=== PATIENT | male | born 1985 | race Caucasian/White ===

== ENCOUNTER 2018-05-09 17:30 | Inpatient (IN) ==
[2018-05-09] MEDS ORDERED: Acetaminophen 325 MG Tablet PO ONE (18:23)
[2018-05-09] MEDS ORDERED: HYDROmorphone PF Inj 2 MG/ML Vial IV.PUSH ONE (18:23)
[2018-05-09] MEDS ORDERED: Clindamycin 600 mg/NS Premix 600 MG/50 ML PIGGYBACK IV.SIG STA (18:23)
[2018-05-09] MEDS ORDERED: Sod Chloride 0.9% Inj 1,000 ML IV.SIG SCH (18:30)
--- NOTE | 2018-05-09 18:30 | ED ---
HPI General Chief complaint: Skin/Abscess/Foreign Body Stated complaint: Neck complaint Time Seen by Provider: 05/09/18 18:16 Source: patient Mode of arrival: ambulatory Limitations: no limitations History of Present Illness HPI narrative: Is a 32-year-old man, presents to the emergency department quitting of severe pain redness swelling on the right side of his neck. Started about 5 or 6 days ago. Progressively worse. Exquisitely tender now. Warm and hot to the touch. Endorses fevers chills and sweats also over the past several days. Denies injection drug use at all. Does endorse some recent work on his neck tattoo. No history of soft tissue infection. States he otherwise has been feeling generally well and healthy. Related Data Home Medications Medication Instructions Recorded Confirmed No Known Home Medications 04/25/18 05/09/18 Allergies Allergy/AdvReac Type Severity Reaction Status Date / Time No Known Allergies Allergy Verified 04/25/18 23:16 Review of Systems ROS: all other systems reviewed are negative [facility] Medical History Medical History PTSD (post-traumatic stress disorder) (Acute) Social History Social History Second Hand Smoke Exposure: Yes Smoking Status: Former smoker Tobacco Type: Cigarettes How Often Do You Have a Drink Containing Alcohol: Never Immunization History Tetanus Immunization: Unsure Tetanus Immunization Year if Known: 2013 Exam Narrative Exam Narrative: GENERAL: Well-appearing 32-year-old man, nontoxic, appears uncomfortable. SKIN: Focused skin assessment warm/dry. HEAD: Atraumatic. Normocephalic. EYES: Pupils equal and round. No scleral icterus. No injection or drainage. ENT: No nasal bleeding or discharge. Mucous membranes pink and moist. NECK: Trachea midline. Large tender bulge to the right side of the neck, right along the anterior cervical space, with some fluctuance, and marked erythema and warmth. Exquisite tenderness. CARDIOVASCULAR: Regular rate and rhythm. No murmur appreciated. RESPIRATORY: No accessory muscle use. Clear to auscultation. Breath sounds equal bilaterally. GASTROINTESTINAL: Abdomen soft, non-tender, nondistended. Hepatic and splenic margins not palpable. MUSCULOSKELETAL: No obvious deformities. No clubbing. No cyanosis. No edema. Course Initial Documented Vital Signs Temperature 98.4 F 05/09/18 17:38 Pulse Rate 85 05/09/18 17:38 Respiratory Rate 18 05/09/18 17:38 Blood Pressure 136/75 05/09/18 17:38 Pulse Oximetry 100 05/09/18 17:38 Last Documented Vital Signs Temperature 98.4 F 05/09/18 17:38 Pulse Rate 66 05/09/18 20:30 Respiratory Rate 15 05/09/18 20:30 Blood Pressure 104/56 L 05/09/18 20:30 Pulse Oximetry 100 05/09/18 20:30 Medical Decision Making MDM Narrative Medical decision making narrative: Is a 32-year-old man, appears to have a large abscess on his anterior right delicate area for drainage. Appears very close to the carotid and the jugular. Will check CT imaging. I suspect this is a primary soft tissue infection. I do not think this is odontogenic. Suspect injection drug use although patient denies. Will check CT, labs, lactate and cultures given his complaint of fevers and sweats. Needs drainage, probably in the OR, will follow up on CT, reassess. Medical Screen Exam Complete: Yes Emergency Medical Condition: Yes Lab Data Result diagrams: 05/09/18 18:36 05/09/18 18:36 Lab Results 05/09/18 05/09/18 Range/Units 18:36 18:36 WBC 11.5 H (4.0-11.0) th/mm3 RBC 4.27 L (4.50-5.90) mil/mm3 Hgb 12.5 L (13.0-17.0) gm/dL Hct 37.3 L (39.0-51.0) % MCV 87.3 (80.0-100.0) fL MCH 29.3 (27.0-34.0) pg MCHC 33.6 (32.0-36.0) % RDW 12.6 (11.6-17.2) % Plt Count 262 (150-450) th/mm3 MPV 7.8 (7.0-11.0) fL Neut % (Auto) 80.2 H (16.0-70.0) % Lymph % (Auto) 13.2 (9.0-44.0) % [place] % (Auto) 5.4 (0.0-8.0) % Eos % (Auto) 0.7 (0.0-4.0) % Baso % (Auto) 0.5 (0.0-2.0) % Neut # (Auto) 9.2 H (1.8-7.7) th/mm3 Lymph # (Auto) 1.5 (1.0-4.8) th/mm3 [place] # (Auto) 0.6 (0.0-0.9) th/mm3 Eos # (Auto) 0.1 (0.0-0.4) th/mm3 Baso # (Auto) 0.1 (0.0-0.2) th/mm3 WBC Differential . Differential Comment Auto diff final Sodium 139 (136-145) meq/L Potassium 3.9 (3.5-5.1) meq/L Chloride 104 (98-107) meq/L Carbon Dioxide 29.0 (21.0-32.0) meq/L Anion Gap 6 (5-15) meq/L BUN 10 (7-18) mg/dL Creatinine 1.20 (0.60-1.30) mg/dL Estimated GFR 71 L (>89) mL/min Random Glucose 83 (74-106) mg/dL Calcium 9.4 (8.5-10.1) mg/dL Imaging Data Radiologist's impression: Soft Tissue Neck CT 05/09/18 18:23 CONCLUSION: 1. Large ill-defined low-attenuation mass extending along the right side of the neck. The differential diagnosis includes abscess and necrotic masses. 2. Several borderline prominent right cervical chain lymph nodes which likely are reactive. Discharge Plan Discharge Disposition Patient Disposition: ED Admit(ED Internal Use Only) Discharge Order Discharge Orders: ED Use Only Admit Order (Routine); Ordered 05/09/18 Ordered By: Caio Velasquez Physicians Team ED Provider: Caio Velasquez Primary Care Provider: UNKNOWN, Rxs /Orders / Referrals /Forms Prescriptions: No Action No Known Home Medications RF: 0 Discharge Instructions Patient Printed Instructions: Incision and Drainage (DC) Discharge Interventions Interventions: Vital Signs Last Done: 05/09/18 20:30 Status ED Status: With Doctor
[2018-05-09 19:24] LABS: Baso # (Auto) 0.1 th/mm3 (0.0-0.2); Baso % (Auto) 0.5 % (0.0-2.0); Eos # (Auto) 0.1 th/mm3 (0.0-0.4); Eos % (Auto) 0.7 % (0.0-4.0); Hematocrit 37.3 % (39.0-51.0); Hemoglobin 12.5 gm/dL (13.0-17.0); Lymph # (Auto) 1.5 th/mm3 (1.0-4.8); Lymph % (Auto) 13.2 % (9.0-44.0); Mean Corpuscular HGB Conc 33.6 % (32.0-36.0); Mean Corpuscular Hemoglobin 29.3 pg (27.0-34.0); Mean Corpuscular Volume 87.3 fL (80.0-100.0); Mean Platelet Volume 7.8 fL (7.0-11.0); Mono # (Auto) 0.6 th/mm3 (0.0-0.9); Mono % (Auto) 5.4 % (0.0-8.0); Neut # (Auto) 9.2 th/mm3 (1.8-7.7); Neut % (Auto) 80.2 % (16.0-70.0); Platelet Count 262 th/mm3 (150-450); Red Blood Count 4.27 mil/mm3 (4.50-5.90); Red Cell Distribution Width 12.6 % (11.6-17.2); White Blood Count 11.5 th/mm3 (4.0-11.0)
[2018-05-09 19:29] LABS: Calcium 9.4 mg/dL (8.5-10.1); Potassium 3.9 meq/L (3.5-5.1)
--- NOTE | 2018-05-09 20:13 | CT ---
EXAM DATE: 05/09/2018 8:06 PM EST AGE/SEX: 32 years / Male INDICATIONS: Right side neck swelling, evaluate for abscess. CLINICAL DATA: This is the patient's initial encounter. Patient reports that signs and symptoms have been present for 1 week and indicates a pain score of 7/10. MEDICAL/SURGICAL HISTORY: None. None. RADIATION DOSE: 15.24 CTDI (mGy) COMPARISON: No prior exams available for comparison. TECHNIQUE: Helical acquisition was performed using a multirow detector CT scanner during the adminis tration of 69 ml Omnipaque 350 (iohexol) nonionic water-soluble contrast as a single exam dose. Usi ng automated exposure control and adjustment of the mA and/or kV according to patient size, radiation dose was kept as low as reasonably achievable to obtain optimal diagnostic quality images. DICOM fo rmat image data is available electronically for review and comparison. FINDINGS: Nasopharynx: The nasopharyngeal airway has a normal configuration. No mucosal thickening or mass is seen. Oropharynx: The intrinsic muscles of the tongue are symmetric. The tonsillar pillars are intact. T he prevertebral soft tissues are not thickened. Larynx: The supraglottic, glottic, and infraglottic structures are intact. Parapharyngeal: The parapharyngeal space is intact. Salivary Glands: The parotid and submandibular glands are intact. Lymph Nodes: There are several borderline prominent right cervical chain lymph nodes adjacent to the mass in the the largest measures up to 11 mm. Thyroid: Homogeneous enhancement without evidence of nodule. Bones: Unremarkable. There is a large ill-defined low density mass along the right side of the neck with peripheral and in ternal areas of enhancement. The mass measures up to at least 3.5 x 3.5 x 7.5 cm in greatest anterior -posterior by transverse by caudocranial dimension. There is mass effect on the right vascular struct ures. The mass extends from the level of the angle of the mandible down to the base of the neck. Ther e are no gas bubbles in the mass. CONCLUSION: 1. Large ill-defined low-attenuation mass extending along the right side of the neck. The differenti al diagnosis includes abscess and necrotic masses. 2. Several borderline prominent right cervical chain lymph nodes which likely are reactive. Electronically signed by: Jone Amanda MD Board Certified Radiologist 05/09/2018 8:12 PM EST
[2018-05-09] MEDS ORDERED: Acetaminophen 325 MG Tablet PO PRN (21:31)
[2018-05-09] MEDS ORDERED: Bisacodyl 10 MG Supp RECTAL PRN (21:31)
[2018-05-09] MEDS: Sod Chloride 0.9% Inj 1,000 ML IV.CONT SCH (21:39)
--- NOTE | 2018-05-09 22:29 | P.HP ---
History of Present Illness Service: [facility] Primary Care Physician: UNKNOWN History of Present Illness: 32-year-old male with no significant past medical history presents emergency department for evaluation of right sided neck swelling and erythema. The patient reports that a few weeks ago he noticed a "knot" on the right side of his neck. He reports that it remained stable until Wednesday morning when he awoke from sleep with significant swelling, surrounding erythema and pain. He states the mass has continued to enlarge. He reports multiple subjective fever/ chills that began on Wednesday. He denies any chest pain or shortness of breath. No abdominal pain. No nausea/vomiting/diarrhea. No focal neurologic deficits. The patient denies any illicit substance abuse. Denies any previous IV drug abuse. Inpatient Certification: I certify that the inpatient services were ordered in accordance with Medicare regulations governing the order. This includes certification that hospital inpatient services are reasonable and necessary and in the case of services not specified as inpatient-only under 42 CFR 419.22(n), that they are appropriately provided as inpatient services in accordance to with the 2-midnight benchmark under 43 CFR 412.3(e) Estimated Total Length of Stay (Days): 2 Plans for Post Hospital Care: Home Review of Systems All other systems reviewed negative except as stated [facility] - History History Provided By: Patient - Medical History Medical History: Medical History (Last Reviewed 05/09/18 @ 22:24 by Daphnie Coello MD) PTSD (post-traumatic stress disorder) - Surgical History Surgical History: Surgical History (Last Updated 05/09/18 @ 22:25 by Daphnie Coello MD) No history of previous surgery - Family History Family History: Family History (Last Updated 05/09/18 @ 22:25 by Daphnie Coello MD) Other Family history normal - Social History I have reviewed the patient's Social History: Yes - Tobacco History Second Hand Smoke Exposure: Yes Smoking Status: Former smoker Tobacco Type: Cigarettes - Alcohol History How Often Do You Have a Drink Containing Alcohol: Never - Immunization History Tetanus Immunization: Unsure Tetanus Immunization Year if Known: 2013 Medications and Allergies Active Medications: Active Medications Acetaminophen (Tylenol) 650 mg PO Q4H PRN PRN Reason: Temp > 100.4 Al Hydroxide/Mg Hydroxide (Milk Of Magnesia Liq) 30 ml PO Q12H PRN PRN Reason: Mild Constipation Bisacodyl (Dulcolax Supp) 10 mg RECTAL DAILY PRN PRN Reason: SEVERE CONSITIPATION Hydromorphone HCl (Dilaudid Pf Inj) 1 mg IV.PUSH Q4H PRN PRN Reason: PAIN SCALE 1 TO 10 Clindamycin Phosphate 600 mg/ (Sodium Chloride) 104 mls @ 200 mls/hr IV.SIG Q8H DENIS Sodium Chloride (Ns Inj) 1,000 mls @ 100 mls/hr IV.CONT .Q10H DENIS Last Admin: 05/09/18 21:39 Dose: 100 mls/hr Lactulose (Lactulose Liq) 30 ml PO DAILY PRN PRN Reason: SEVERE CONSITIPATION Ondansetron HCl (Zofran Inj) 4 mg IV.PUSH Q6H PRN PRN Reason: NAUSEA OR VOMITING Sennosides (Senokot) 17.2 mg PO Q12H PRN PRN Reason: Moderate Constipation Sodium Chloride (Ns Flush) 2 ml IV.FLUSH BID DENIS Sodium Chloride (Ns Flush) 2 ml IV.FLUSH PRN PRN PRN Reason: FLUSH AFTER USING IV ACCESS Allergies Allergy/AdvReac Type Severity Reaction Status Date / Time No Known Allergies Allergy Verified 04/25/18 23:16 Home Medications Medication Instructions Recorded Confirmed Type No Known Home Medications 04/25/18 05/09/18 History Exam Vital signs: Vital Signs 05/09/18 17:38 05/09/18 17:40 05/09/18 20:30 Temperature 98.4 F Pulse Rate 85 72 66 Respiratory Rate 18 16 15 Blood Pressure 136/75 134/78 104/56 L Pulse Oximetry 100 98 100 05/09/18 21:00 Temperature Pulse Rate 68 Respiratory Rate 16 Blood Pressure 113/66 Pulse Oximetry 100 Intake & Output 05/09/18 05/09/18 05/10/18 06:59 18:59 06:59 Intake Total 1104 / 1104 Balance 1104 / 1104 Weight 58.967 kg Intake: IV 1104 / 1104 Cleocin Inj 600 MG In NS Inj 104 / 104 100 ML @ 200 mls/hr IV.SIG ONCE ONE Rx#:[id number] NS Inj 1,000 ML @ 1000 mls/hr 1000 / 1000 IV.SIG BOLUS DENIS Rx#:[id number] Narrative: Gen.: No acute distress Head: Normocephalic. Atraumatic. EENT: Pupils equal round and reactive to light. Nose without drainage. Airway intact. Throat without injection. Cardiovascular: Regular rate and rhythm. No murmurs, rubs or gallops. Respiratory: Lungs clear to auscultation bilaterally. No wheezes or rhonchi. Abdomen: Soft, nontender, nondistended. No peritoneal signs. Musculoskeletal: No gross deformities. No edema. Skin: Significant swelling, induration and erythema on the right neck extending from the ear to the clavicle. Warm to the touch. Nondraining. Neuro: Sensory and motor grossly intact. Cranial nerves II through XII grossly intact. Results - Labs CBC & Chem 7: 05/09/18 18:36 05/09/18 18:36 Labs: Laboratory Results - last 24 hr 05/09/18 05/09/18 18:36 18:36 WBC 11.5 H RBC 4.27 L Hgb 12.5 L Hct 37.3 L MCV 87.3 MCH 29.3 MCHC 33.6 RDW 12.6 Plt Count 262 MPV 7.8 Neut % (Auto) 80.2 H Lymph % (Auto) 13.2 [place] % (Auto) 5.4 Eos % (Auto) 0.7 Baso % (Auto) 0.5 Neut # (Auto) 9.2 H Lymph # (Auto) 1.5 [place] # (Auto) 0.6 Eos # (Auto) 0.1 Baso # (Auto) 0.1 WBC Differential . Differential Comment Auto diff final Sodium 139 Potassium 3.9 Chloride 104 Carbon Dioxide 29.0 Anion Gap 6 BUN 10 Creatinine 1.20 Estimated GFR 71 L Random Glucose 83 Calcium 9.4 - Imaging Impressions Soft Tissue Neck CT 05/09/18 18:23 CONCLUSION: 1. Large ill-defined low-attenuation mass extending along the right side of the neck. The differential diagnosis includes abscess and necrotic masses. 2. Several borderline prominent right cervical chain lymph nodes which likely are reactive. Caprini VTE Risk Assessment Caprini VTE Risk Assessment: No/Low Risk (score <= 1) Caprini Risk Assessment Model: Point Value = 1 Point Value = 2 Point Value = 3 Point Value = 5 Age 41-60 Minor surgery BMI > 25 kg/m2 Swollen legs Varicose veins or History of unexplained or recurrent spontaneous Oral contraceptives or hormone replacement Sepsis (< 1 month) Serious lung disease, including pneumonia (< 1 month) Abnormal pulmonary function Acute myocardial infarction Congestive heart failure (< 1 month) History of inflammatory bowel disease Medical patient at bed rest Age 61-74 Arthroscopic surgery Major open surgery (> 45 min) Laparoscopic surgery (> 45 min) Malignancy Confined to bed (> 72 hours) Immobilizing plaster cast Central venous access Age >= 75 History of VTE Family history of VTE Factor V Leiden Prothrombin [id number] Lupus anticoagulant Anticardiolipin antibodies Elevated serum homocysteine Heparin-induced thrombocytopenia Other congenital or acquired thrombophilia Stroke (< 1 month) Elective arthroplasty Hip, pelvis, or leg fracture Acute spinal cord injury (< 1 month) Prophylaxis Regimen: Total Risk Factor Score Risk Level Prophylaxis Regimen 0-1 Low Early ambulation 2 Moderate Order ONE of the following: *Sequential Compression Device (SCD) *Heparin 5000 units SQ BID 3-4 Higher Order ONE of the following medications: *Heparin 5000 units SQ TID *Enoxaparin/Lovenox 40 mg SQ daily (WT < 150 kg, CrCl > 30 mL/min) *Enoxaparin/Lovenox 30 mg SQ daily (WT < 150 kg, CrCl > 10-29 mL/min) *Enoxaparin/Lovenox 30 mg SQ BID (WT < 150 kg, CrCl > 30 mL/min) AND/OR *Sequential Compression Device (SCD) 5 or more Highest Order ONE of the following medications: *Heparin 5000 units SQ TID (Preferred with Epidurals) *Enoxaparin/Lovenox 40 mg SQ daily (WT < 150 kg, CrCl > 30 mL/min) *Enoxaparin/Lovenox 30 mg SQ daily (WT < 150 kg, CrCl > 10-29 mL/min) *Enoxaparin/Lovenox 30 mg SQ BID (WT < 150 kg, CrCl > 30 mL/min) AND *Sequential Compression Device (SCD) Assessment and Plan - Plan Assessment/plan: 1. Neck cellulitis/abscess Neck CT shows large ill-defined mass extending along the right side of the neck concerning for abscess versus necrotic mass IV clindamycin General surgery consulted for I&D Patient denies history of drug use, urine drug screen pending FEN N.p.o. Electrolytes: Monitor and replete as needed NS at 100 cc/hour
[2018-05-09] MEDS: HYDROmorphone PF Inj 0.5 MG/0.5 ML Syringe IV.PUSH PRN (22:42)
[2018-05-10] MEDS: HYDROmorphone PF Inj 0.5 MG/0.5 ML Syringe IV.PUSH PRN ×4 (02:41→22:32)
[2018-05-10] MEDS ORDERED: Chlorhexidine Gluconate 2% 1 Pack (2 Cloths) TOPICAL ONE (07:45)
[2018-05-10] MEDS ORDERED: Metoprolol Tartrate 25 MG Tablet PO ONE (07:45)
[2018-05-10] MEDS ORDERED: Sodium Chlor 0.9% Inj 500 ML IV.CONT ONE (07:45)
--- NOTE | 2018-05-10 07:45 | P.CONGS ---
[facility] Gen Surgery Consult Note Consult date: 05/10/18 Narrative: 32-year-old male developed pain and swelling of the right neck 5-6 days ago. The area increased in size and now is severely painful. He has had fever and chills. He denies IV drug use and states that he had some work done on the tattoo on the right side of his neck. White blood count is 11,000. CT scan of the neck shows a 3 x 3 x 7 cm collection which appears to me somewhat in the sternocleidomastoid muscle. No stridor or problems with breathing. Review of Systems All other systems reviewed negative except as stated in [facility] - History History Provided By: Patient - Medical History Medical History: Medical History (Last Reviewed 05/09/18 @ 22:24 by Daphnie Coello MD) PTSD (post-traumatic stress disorder) - Surgical History Surgical History: Surgical History (Last Updated 05/09/18 @ 22:25 by Daphnie Coello MD) No history of previous surgery - Family History Family History: Family History (Last Updated 05/09/18 @ 22:25 by Daphnie Coello MD) Other Family history normal - Tobacco History Second Hand Smoke Exposure: Yes Smoking Status: Former smoker Tobacco Type: Cigarettes - Alcohol History How Often Do You Have a Drink Containing Alcohol: Never - Immunization History Tetanus Immunization: Unsure Tetanus Immunization Year if Known: 2013 Medications and Allergies Active Medications: Active Medications Acetaminophen (Tylenol) 650 mg PO Q4H PRN PRN Reason: Temp > 100.4 Al Hydroxide/Mg Hydroxide (Milk Of [place]ol[place] Liq) 30 ml PO Q12H PRN PRN Reason: Mild Constipation Bisacodyl (Dulcolax Supp) 10 mg RECTAL DAILY PRN PRN Reason: SEVERE CONSITIPATION Chlorhexidine Gluconate (Chlorhexidine 2% Cloth) 3 pack TOPICAL RODEO PERFORMER ONE Stop: 05/10/18 07:46 Hydromorphone HCl (Dilaudid Pf Inj) 1 mg IV.PUSH Q4H PRN PRN Reason: PAIN SCALE 1 TO 10 Last Admin: 05/10/18 02:41 Dose: 1 mg Clindamycin Phosphate 600 mg/ (Sodium Chloride) 104 mls @ 200 mls/hr IV.SIG Q8H DENIS Last Infusion: 05/10/18 03:38 Dose: Infused Sodium Chloride (Ns Inj) 1,000 mls @ 100 mls/hr IV.CONT .Q10H DENIS Last Infusion: 05/10/18 06:49 Dose: 100 mls/hr Lactated Ringer's (Lr 1000 Ml Inj) 1,000 mls @ 30 mls/hr IV.CONT .Q24H ONE Stop: 05/11/18 07:44 Sodium Chloride (Ns Inj) 500 mls @ 30 mls/hr IV.CONT .[id number] ONE Stop: 05/11/18 00:24 Lactulose (Lactulose Liq) 30 ml PO DAILY PRN PRN Reason: SEVERE CONSITIPATION Metoprolol Tartrate (Lopressor) 25 mg PO RODEO PERFORMER ONE Stop: 05/10/18 07:46 Ondansetron HCl (Zofran Inj) 4 mg IV.PUSH Q6H PRN PRN Reason: NAUSEA OR VOMITING Povidone Iodine (Betadine 5% Antisepsis Kit) 1 applicatio EACH NARE RODEO PERFORMER ONE Stop: 05/10/18 07:46 Sennosides (Senokot) 17.2 mg PO Q12H PRN PRN Reason: Moderate Constipation Sodium Chloride (Ns Flush) 2 ml IV.FLUSH BID DENIS Sodium Chloride (Ns Flush) 2 ml IV.FLUSH PRN PRN PRN Reason: FLUSH AFTER USING IV ACCESS Allergies Allergy/AdvReac Type Severity Reaction Status Date / Time No Known Allergies Allergy Verified 04/25/18 23:16 Home Medications Medication Instructions Recorded Confirmed Type No Known Home Medications 04/25/18 05/09/18 History Exam Vital signs: Vital Signs 05/09/18 17:38 05/09/18 17:40 05/09/18 20:30 Temperature 98.4 F Pulse Rate 85 72 66 Respiratory Rate 18 16 15 Blood Pressure 136/75 134/78 104/56 L Pulse Oximetry 100 98 100 05/09/18 21:00 05/09/18 22:30 05/09/18 23:45 Temperature Pulse Rate 68 56 L 60 Respiratory Rate 16 17 16 Blood Pressure 113/66 123/68 108/60 Pulse Oximetry 100 100 05/10/18 00:00 05/10/18 02:42 05/10/18 06:13 Temperature 99.2 F Pulse Rate 60 82 90 Respiratory Rate 16 19 17 Blood Pressure 110/62 128/67 125/65 Pulse Oximetry 99 97 97 Intake & Output 05/09/18 05/10/18 05/10/18 18:59 06:59 18:59 Intake Total 1208 / 1208 Balance 1208 / 1208 Weight 58.967 kg Intake: IV 1208 / 1208 Cleocin Inj 600 MG In NS Inj 208 / 208 100 ML @ 200 mls/hr IV.SIG Q8H DENIS Rx#:[id number] NS Inj 1,000 ML @ 1000 mls/hr 1000 / 1000 IV.SIG BOLUS DENIS Rx#:[id number] Narrative: GENERAL: Awake and alert. Appears in pain. Cooperative. HEAD: Normocephalic. Atraumatic. EYES: Pupils equal round and reactive to light bilaterally. No scleral icterus. ENT: Moist oral mucosa. NECK: Exquisite tenderness right side of neck with induration and fluctuance and erythema CHEST: Nonlabored breathing. No respiratory distress. CARDIOVASCULAR: Regular rate and rhythm. EXTREMITIES: No cyanosis or edema. SKIN: Warm, dry, nonjaundiced. Tattoos throughout the neck torso and extremities. Results - Labs 05/09/18 18:36 05/09/18 18:36 Laboratory Results - last 24 hr 05/09/18 05/09/18 18:36 18:36 WBC 11.5 H RBC 4.27 L Hgb 12.5 L Hct 37.3 L MCV 87.3 MCH 29.3 MCHC 33.6 RDW 12.6 Plt Count 262 MPV 7.8 Neut % (Auto) 80.2 H Lymph % (Auto) 13.2 [place] % (Auto) 5.4 Eos % (Auto) 0.7 Baso % (Auto) 0.5 Neut # (Auto) 9.2 H Lymph # (Auto) 1.5 [place] # (Auto) 0.6 Eos # (Auto) 0.1 Baso # (Auto) 0.1 WBC Differential . Differential Comment Auto diff final Sodium 139 Potassium 3.9 Chloride 104 Carbon Dioxide 29.0 Anion Gap 6 BUN 10 Creatinine 1.20 Estimated GFR 71 L Random Glucose 83 Calcium 9.4 - Imaging Imaging: ITS Impressions Soft Tissue Neck CT 05/09/18 18:23 CONCLUSION: 1. Large ill-defined low-attenuation mass extending along the right side of the neck. The differential diagnosis includes abscess and necrotic masses. 2. Several borderline prominent right cervical chain lymph nodes which likely are reactive. CT scan - abdomen: report reviewed, image reviewed CT scan - pelvis: report reviewed, image reviewed Assessment and Plan - Assessment (1) Neck abscess Code(s): L02.11 - Cutaneous abscess of neck Status: Acute - Plan Recommend to proceed to the operating room for incision and drainage of right neck abscess. I discussed this in detail with the patient and he desires to proceed.
[2018-05-10] MEDS ORDERED: HYDROmorphone PF Inj 1 MG/ML Ampul ONE (07:46)
[2018-05-10] MEDS ORDERED: Sugammadex Inj 200 MG/2 ML Vial IV.PUSH ONE (08:53)
[2018-05-10] MEDS ORDERED: Ketamine Inj 50 MG/5 ML Syringe IV.PUSH ONE (08:54)
[2018-05-10] MEDS ORDERED: Bupivacaine/Epinephrine PF Inj 0.5% 30 ML Vial ONE (08:54)
[2018-05-10] MEDS ORDERED: Dexmedetomidine Inj 200 MCG/2 ML Vial ONE (08:54)
[2018-05-10] MEDS ORDERED: Clindamycin Inj 600 MG/4 ML Vial ONE (09:21)
--- NOTE | 2018-05-10 09:56 | P.OP ---
- Preoperative Diagnosis (1) Neck abscess - Postoperative Diagnosis (1) Neck abscess Date of procedure: 05/10/18 Procedure: Incision and drainage right neck abscess Anesthesia: RONA Surgeon: Addy Horan MD Director Safety: Mack DANIELSON Estimated blood loss (mL): 5 Pathology: other (culture) Operation and Findings: Operative findings: copious large amt of pus from right neck abscess extending into sternoclidomastoid muscle. Procedure in detail: Patient was taken to the operating room placed in supine position. General anesthesia was induced and the right neck was prepped and draped in usual sterile fashion. Surgical timeout was performed to verify correct patient procedure and site. Of note the patient has dermal stud type piercings in both cheeks which are unable to be removed. He had a piercing below the lower lip which was removed. Bipolar cautery was therefore used and it was used judiciously. A longitudinal incision was made along the sternocleidomastoid area on the right. A large cavity of pus was entered. All loculations were broken up. The cavity was irrigated with half and half solution of saline and peroxide. Cavity was extending into a portion of the sternocleidomastoid. Hemostasis was achieved with the bipolar cautery and the wound was packed with iodoform packing and a sterile dressing was applied.
[2018-05-10] MEDS ORDERED: fentaNYL Citrate Inj 100 MCG/2 ML Ampul ONE (10:10)
--- NOTE | 2018-05-10 14:58 | P.PNIM ---
Subjective Interval history: Patient seen this after noon s/p I&D for neck abscess. he has no complaints at present. Physical Exam Vital signs: Vital Signs 05/09/18 17:38 05/09/18 17:40 05/09/18 20:30 Temperature 98.4 F Pulse Rate 85 72 66 Respiratory Rate 18 16 15 Blood Pressure 136/75 134/78 104/56 L Pulse Oximetry 100 98 100 05/09/18 21:00 05/09/18 22:30 05/09/18 23:45 Temperature Pulse Rate 68 56 L 60 Respiratory Rate 16 17 16 Blood Pressure 113/66 123/68 108/60 Pulse Oximetry 100 100 05/10/18 00:00 05/10/18 02:42 05/10/18 06:13 Temperature 99.2 F Pulse Rate 60 82 90 Respiratory Rate 16 19 17 Blood Pressure 110/62 128/67 125/65 Pulse Oximetry 99 97 97 05/10/18 10:01 05/10/18 10:15 05/10/18 10:30 Temperature 99.0 F Pulse Rate 72 65 62 Respiratory Rate 16 13 13 Blood Pressure 93/53 L 92/55 L 93/51 L Pulse Oximetry 100 99 99 05/10/18 10:45 05/10/18 11:00 05/10/18 12:00 Temperature 97.8 F Pulse Rate 63 56 L 46 L Respiratory Rate 14 13 13 Blood Pressure 101/57 L 94/52 L 91/53 L Pulse Oximetry 99 99 Intake & Output 05/09/18 05/10/18 05/10/18 18:59 06:59 18:59 Intake Total 1208 / 1208 600 / 600 Output Total 5 / 5 Balance 1208 / 1208 595 / 595 Weight 58.967 kg Intake: IV 1208 / 1208 100 / 100 Ofirmev Inj 1,000 mg In 100 ml 100 / 100 @ 0 mls/hr IV.SIG .STK-MED ONE Rx#:[id number] Cleocin Inj 600 MG In NS Inj 208 / 208 100 ML @ 200 mls/hr IV.SIG Q8H [facility] Rx#:[id number] NS Inj 1,000 ML @ 1000 mls/hr 1000 / 1000 IV.SIG BOLUS [facility] Rx#:[id number] Anesthesia Amount 500 / 500 Output: Estimated Blood Loss 5 / 5 Narrative: GENERAL: well developed young man, not in distress. NECK:Rt neck dressing in situ CARDIOVASCULAR: Regular rate and rhythm without murmurs, gallops, or rubs. RESPIRATORY: Clear to auscultation. Breath sounds equal bilaterally. No wheezes , rales, or rhonchi. GASTROINTESTINAL: Abdomen soft, non-tender, nondistended. Normal active bowel sounds MUSCULOSKELETAL: Extremities without clubbing, cyanosis, or edema. NEURO: Alert & Oriented x4 to person, place, time, situation. Moves all ext x4 SKIN: tattoos noted Results Labs CBC & Chem 7: 05/09/18 18:36 05/09/18 18:36 Labs: Microbiology 05/09/18 18:36 Blood - Peripheral Aerobic Blood Culture - Preliminary No growth in 1 day 05/09/18 18:36 Blood - Peripheral Anaerobic Blood Culture - Preliminary No growth in 1 day 05/09/18 18:31 Blood - Peripheral Aerobic Blood Culture - Preliminary No growth in 1 day 05/09/18 18:31 Blood - Peripheral Anaerobic Blood Culture - Preliminary No growth in 1 day Imaging Imaging: Impressions Soft Tissue Neck CT 05/09/18 18:23 CONCLUSION: 1. Large ill-defined low-attenuation mass extending along the right side of the neck. The differential diagnosis includes abscess and necrotic masses. 2. Several borderline prominent right cervical chain lymph nodes which likely are reactive. Assessment and Plan (1) Neck abscess: Code(s): L02.11 - Cutaneous abscess of neck Status: Acute Plan 32 yo m who presented with right neck abscess. He is now s/p I&D. Continue IV Clindamycin, IV fluids, as needed pain medication. DVT ppx-low risk, ambulate.
[2018-05-10 15:46] LABS: Baso % (Auto) 0.1 % (0.0-2.0); Hematocrit 31.1 % (39.0-51.0); Hemoglobin 10.9 gm/dL (13.0-17.0); Lymph # (Auto) 0.8 th/mm3 (1.0-4.8); Lymph % (Auto) 6.5 % (9.0-44.0); Mean Corpuscular HGB Conc 35.1 % (32.0-36.0); Mean Corpuscular Hemoglobin 30.2 pg (27.0-34.0); Mean Corpuscular Volume 85.9 fL (80.0-100.0); Mean Platelet Volume 7.9 fL (7.0-11.0); Mono # (Auto) 0.3 th/mm3 (0.0-0.9); Mono % (Auto) 2.7 % (0.0-8.0); Neut # (Auto) 11.2 th/mm3 (1.8-7.7); Neut % (Auto) 90.7 % (16.0-70.0); Platelet Count 219 th/mm3 (150-450); Red Blood Count 3.62 mil/mm3 (4.50-5.90); Red Cell Distribution Width 12.8 % (11.6-17.2); White Blood Count 12.4 th/mm3 (4.0-11.0)
[2018-05-10 16:03] LABS: Calcium 8.7 mg/dL (8.5-10.1); Potassium 3.9 meq/L (3.5-5.1)
[2018-05-10] MEDS: Aluminum/Magnesium/Simethacone Susp 30 ML UDC PO PRN ×2 (17:44→22:37)
[2018-05-10 19:22] LABS: Amphetamine Screen,Urine Neg (Neg); Barbiturate Screen,Urine Neg (Neg); Cannabinoid Screen,Urine Pos (Neg); Cocaine Screen,Urine Neg (Neg)
[2018-05-10 19:36] LABS: Opiate Screen,Urine Neg (Neg)
[2018-05-10] MEDS: Sod Chloride 0.9% Inj 1,000 ML IV.CONT SCH (21:16)
[2018-05-11] MEDS: HYDROmorphone PF Inj 0.5 MG/0.5 ML Syringe IV.PUSH PRN ×2 (03:52→08:21)
[2018-05-11] MEDS: Sod Chloride 0.9% Inj 1,000 ML IV.CONT SCH ×3 (03:53→13:38)
[2018-05-11 06:44] LABS: Baso % (Auto) 0.3 % (0.0-2.0); Eos # (Auto) 0.1 th/mm3 (0.0-0.4); Eos % (Auto) 0.8 % (0.0-4.0); Hematocrit 30.7 % (39.0-51.0); Hemoglobin 10.5 gm/dL (13.0-17.0); Lymph # (Auto) 2.1 th/mm3 (1.0-4.8); Mean Corpuscular HGB Conc 34.3 % (32.0-36.0); Mean Corpuscular Hemoglobin 29.6 pg (27.0-34.0); Mean Corpuscular Volume 86.4 fL (80.0-100.0); Mean Platelet Volume 8.3 fL (7.0-11.0); Mono # (Auto) 0.5 th/mm3 (0.0-0.9); Mono % (Auto) 5.8 % (0.0-8.0); Neut # (Auto) 5.4 th/mm3 (1.8-7.7); Neut % (Auto) 67.1 % (16.0-70.0); Platelet Count 209 th/mm3 (150-450); Red Blood Count 3.55 mil/mm3 (4.50-5.90); Red Cell Distribution Width 12.7 % (11.6-17.2)
--- NOTE | 2018-05-11 12:16 | P.PNIM ---
Subjective Interval history: Follow-up visit neck abscess s/p I&D Patient is resting in bed. He reports severe pain earlier today when RN was attempting to perform dressing change at bedside. He states his pain was so severe that he felt nauseated and vomited. No pain to neck at present time. Physical Exam Vital signs: Vital Signs 05/10/18 13:00 05/10/18 13:30 05/10/18 14:00 Temperature 97.9 F Pulse Rate 45 L 60 Respiratory Rate 13 17 Blood Pressure 96/54 L 103/56 L Pulse Oximetry 100 100 100 05/10/18 16:00 05/10/18 19:15 05/10/18 23:23 Temperature 98.2 F 98.6 F 97.8 F Pulse Rate 65 67 66 Respiratory Rate 17 18 18 Blood Pressure 102/56 L 101/59 L 106/56 L Pulse Oximetry 97 97 98 05/11/18 03:51 05/11/18 04:48 05/11/18 08:00 Temperature 98.1 F 97.9 F Pulse Rate 62 56 L Respiratory Rate 18 19 16 Blood Pressure 110/78 95/53 L Pulse Oximetry 98 99 Intake & Output 05/10/18 05/11/18 05/11/18 18:59 06:59 18:59 Intake Total 2500 / 2500 1810 / 1810 Output Total 605 / 605 Balance 1895 / 1895 1810 / 1810 Weight 59.6 kg Intake: IV 1100 / 1100 1010 / 1010 NS Inj 1,000 ML @ 100 mls/hr IV 1000 / 1000 802 / 802 .CONT .Q10H [facility] Rx#:[id number] Ofirmev Inj 1,000 mg In 100 ml 100 / 100 @ 0 mls/hr IV.SIG .STK-MED ONE Rx#:[id number] Cleocin Inj 600 MG In NS Inj 208 / 208 100 ML @ 200 mls/hr IV.SIG Q8H [facility] Rx#:[id number] Oral 900 / 900 800 / 800 Anesthesia Amount 500 / 500 Output: Urine 600 / 600 Estimated Blood Loss 5 / 5 Other: # Voids 4 Narrative: GENERAL: well developed young man, not in distress. NECK:Rt neck dressing in situ CARDIOVASCULAR: Regular rate and rhythm without murmurs, gallops, or rubs. RESPIRATORY: Clear to auscultation. Breath sounds equal bilaterally. No wheezes , rales, or rhonchi. GASTROINTESTINAL: Abdomen soft, non-tender, nondistended. Normal active bowel sounds MUSCULOSKELETAL: Extremities without clubbing, cyanosis, or edema. NEURO: Alert & Oriented x4 to person, place, time, situation. Moves all ext x4 SKIN: tattoos noted Results Labs CBC & Chem 7: 05/11/18 05:54 05/10/18 15:12 Labs: Microbiology 05/09/18 18:36 Blood - Peripheral Aerobic Blood Culture - Preliminary No growth in 2 days 05/09/18 18:36 Blood - Peripheral Anaerobic Blood Culture - Preliminary No growth in 2 days 05/09/18 18:31 Blood - Peripheral Aerobic Blood Culture - Preliminary No growth in 2 days 05/09/18 18:31 Blood - Peripheral Anaerobic Blood Culture - Preliminary No growth in 2 days 05/10/18 12:00 Wound - Neck Gram Stain - Final Assessment and Plan (1) Neck abscess: Code(s): L02.11 - Cutaneous abscess of neck Status: Acute Plan 32 yo m who presented with right neck abscess Neck abscess -s/p I&D per General surgery -Blood cx with NGTD, wound cultures pending -continue IV Clindamycin -pain meds PRN -IV fluids Leukocytosis -likely secondary to above and resolved MDM: self Code: Full GI ppx: not indicated DVT ppx: SCD's, ambulatory Discussed with: patient, RN Dispo: Home once medically optimized
[2018-05-11] MEDS: HYDROmorphone PF Inj 1 MG/ML Ampul IV.PUSH PRN ×3 (12:40→21:59)
--- NOTE | 2018-05-11 13:28 | P.PNGS ---
Subjective Interval history: Pain with packing change. Ok now. Physical Exam Vital signs: Vital Signs 05/10/18 13:30 05/10/18 14:00 05/10/18 16:00 Temperature 97.9 F 98.2 F Pulse Rate 60 65 Respiratory Rate 17 17 Blood Pressure 103/56 L 102/56 L Pulse Oximetry 100 100 97 05/10/18 19:15 05/10/18 23:23 05/11/18 03:51 Temperature 98.6 F 97.8 F 98.1 F Pulse Rate 67 66 62 Respiratory Rate 18 18 18 Blood Pressure 101/59 L 106/56 L 110/78 Pulse Oximetry 97 98 98 05/11/18 04:48 05/11/18 08:00 05/11/18 12:00 Temperature 97.9 F 97.7 F Pulse Rate 56 L 74 Respiratory Rate 19 16 17 Blood Pressure 95/53 L 96/55 L Pulse Oximetry 99 96 Intake & Output 05/10/18 05/11/18 05/11/18 18:59 06:59 18:59 Intake Total 2500 / 2500 1810 / 1810 104 / 104 Output Total 605 / 605 Balance 1895 / 1895 1810 / 1810 104 / 104 Weight 59.6 kg Intake: IV 1100 / 1100 1010 / 1010 104 / 104 NS Inj 1,000 ML @ 100 mls/hr IV 1000 / 1000 802 / 802 .CONT .Q10H [facility] Rx#:[id number] Ofirmev Inj 1,000 mg In 100 ml 100 / 100 @ 0 mls/hr IV.SIG .STK-MED ONE Rx#:[id number] Cleocin Inj 600 MG In NS Inj 208 / 208 104 / 104 100 ML @ 200 mls/hr IV.SIG Q8H [facility] Rx#:[id number] Oral 900 / 900 800 / 800 Anesthesia Amount 500 / 500 Output: Urine 600 / 600 Estimated Blood Loss 5 / 5 Other: # Voids 4 Narrative: Packing in place. Induration and erythema much better Results - Labs 05/11/18 05:54 05/10/18 15:12 Laboratory Results - last 24 hr 05/09/18 05/10/18 05/10/18 18:30 15:12 15:12 WBC 12.4 H RBC 3.62 L Hgb 10.9 L Hct 31.1 L MCV 85.9 MCH 30.2 MCHC 35.1 RDW 12.8 Plt Count 219 MPV 7.9 Neut % (Auto) 90.7 H Lymph % (Auto) 6.5 L Crowley % (Auto) 2.7 Eos % (Auto) 0.0 Baso % (Auto) 0.1 Neut # (Auto) 11.2 H Lymph # (Auto) 0.8 L Crowley # (Auto) 0.3 Eos # (Auto) 0.0 Baso # (Auto) 0.0 WBC Differential . Differential Comment Auto diff final Sodium 141 Potassium 3.9 Chloride 107 Carbon Dioxide 24.0 Anion Gap 10 BUN 8 Creatinine 1.19 Estimated GFR 71 L Random Glucose 175 H Calcium 8.7 Urine Opiates Screen Neg Ur Barbiturates Screen Neg Ur Amphetamines Screen Neg U Benzodiazepines Scrn Pos H Urine Cocaine Screen Neg U Cannabinoids Screen Pos H 05/11/18 05:54 WBC 8.0 RBC 3.55 L Hgb 10.5 L Hct 30.7 L MCV 86.4 MCH 29.6 MCHC 34.3 RDW 12.7 Plt Count 209 MPV 8.3 Neut % (Auto) 67.1 Lymph % (Auto) 26.0 Crowley % (Auto) 5.8 Eos % (Auto) 0.8 Baso % (Auto) 0.3 Neut # (Auto) 5.4 Lymph # (Auto) 2.1 Crowley # (Auto) 0.5 Eos # (Auto) 0.1 Baso # (Auto) 0.0 WBC Differential . Differential Comment Auto diff final Sodium Potassium Chloride Carbon Dioxide Anion Gap BUN Creatinine Estimated GFR Random Glucose Calcium Urine Opiates Screen Ur Barbiturates Screen Ur Amphetamines Screen U Benzodiazepines Scrn Urine Cocaine Screen U Cannabinoids Screen - Imaging Imaging: ITS Impressions Soft Tissue Neck CT 05/09/18 18:23 CONCLUSION: 1. Large ill-defined low-attenuation mass extending along the right side of the neck. The differential diagnosis includes abscess and necrotic masses. 2. Several borderline prominent right cervical chain lymph nodes which likely are reactive. Assessment and Plan - Assessment (1) Neck abscess Code(s): L02.11 - Cutaneous abscess of neck Status: Acute - Plan POD 1 s/p I&D right neck abscess. Continue packing changes. Ok for dc home from my standpoint when antibiotic regimen decided. Culture is pending. F/u with me next week.
[2018-05-12] MEDS: HYDROmorphone PF Inj 1 MG/ML Ampul IV.PUSH PRN ×3 (02:19→13:29)
[2018-05-12] MEDS: Sod Chloride 0.9% Inj 1,000 ML IV.CONT SCH ×2 (02:22→13:36)
[2018-05-12] MEDS ORDERED: Pantoprazole Inj 40 MG Vial IV.PUSH ONE (12:00)
[2018-05-12 16:30] VITALS: BP 104/59; PULSE 62; RESP 19; TEMP 97.8; O2SAT 99
--- NOTE | 2018-05-12 18:14 | P.DS ---
DS: Providers Date of admission: 05/09/18 21:41 Primary care physician: UNKNOWN Consults: 05/09/18 21:31 Consult to General Surgery Routine Consulting Provider: Addy Horan Industrial Automation Engineer:: Addy Horan Patient known to:: Addy Horan Reason for Consultation: Large ill-defined low-attenuation mass extending along the right side of the neck. Notified:: Service Spoke with:: CRISTOBAL Date Notified:: 05/09/18 Time Notified:: 21:59 Ordering Provider: MARK Anticipated date of discharge: 05/12/18 Brief History from admission: 32-year-old male with no significant past medical history presents emergency department for evaluation of right sided neck swelling and erythema. The patient reports that a few weeks ago he noticed a "knot" on the right side of his neck. He reports that it remained stable until Wednesday morning when he awoke from sleep with significant swelling, surrounding erythema and pain. He states the mass has continued to enlarge. He reports multiple subjective fever/ chills that began on Wednesday. He denies any chest pain or shortness of breath. No abdominal pain. No nausea/vomiting/diarrhea. No focal neurologic deficits. The patient denies any illicit substance abuse. Denies any previous IV drug abuse. DS: Diagnosis Discharge Diagnosis (1) Neck abscess: Status: Acute (2) Leukocytosis: Status: Acute Diagnosis: Principal DS: Summary Patient reported a 5-6 day history of progressively worsening swelling and pain to the right side of his neck. Patient recently had work done on a tattoo on this side. He was admitted to the medical telemetry floor. CT scan of the neck showed a 3 x 3 x 7 cm large ill-defined low-attenuation mass extending along the right side of the neck. He was seen in consultation by General Surgery with recommendations to take patient to the OR for an incision and drainage. Risks, benefits, vs alternatives were discussed with the patient per General Surgery and he consented to the procedure. A copious large amount of pus from the right neck abscess extending into sternoclidomastoid muscle was noted during the procedure on 05/10/18. Wound culture was positive for haemophilus parainfluenza and Eikenella corrodens. Patient was cleared for discharge from a General Surgery standpoint with dressing changes as instructed, antibiotics and follow up within 1 week. RN provided education on changing out packing and properly dressing the wound. Patient's roommate observed. Patient verbalized that roommate was willing to help and that he did not need additional assistance. CM was consulted for [facility] home health visits, however, patient declined and stated he would be able to manage. RX for antibiotics and pain meds was provided at time of discharge. Patient agreed to schedule all necessary follow up appointments. He was hemodynamically stable at time of discharge. [employer] Prescription Drug Monitoring Database has been queried and verified prior to prescribing the controlled substance. Acute pain exception: This patient has normal, predicted, physiological, and time limited response to an adverse mechanical stimulus associated with surgery , trauma, or acute illness as described in my notes. There is a lack of alternative treatment options other than to include the prescribed narcotic treatment for this condition. Time Spent with Patient Total time spent providing and/or coordinating discharge services: Greater than 30 minutes Status at Discharge Functional status at discharge: independent ambulation Overall status at discharge: patient is progressing back to baseline Exam Narrative Exam Narrative: GENERAL: well developed, well nourished, AAOx 3, no acute distress SKIN: Warm and dry. HEAD: Normocephalic, atraumatic EYES: No scleral icterus. No injection or drainage. NECK: Supple, trachea midline. No JVD. Incision to right side of neck with packing and dressing clean, dry and intact. CARDIOVASCULAR: Regular rate and rhythm without murmurs, gallops, or rubs. RESPIRATORY: Breath sounds equal bilaterally. No accessory muscle use. GASTROINTESTINAL: Abdomen soft, non-tender, nondistended. MUSCULOSKELETAL: No cyanosis, or edema. Results Labs on day of discharge: Preliminary micro results at discharge 05/09/18 18:36 Aerobic Blood Culture - Preliminary Blood - Peripheral No growth in 3 days Anaerobic Blood Culture - Preliminary No growth in 3 days 05/09/18 18:31 Aerobic Blood Culture - Preliminary Blood - Peripheral No growth in 3 days Anaerobic Blood Culture - Preliminary No growth in 3 days Impressions ITS Impressions Soft Tissue Neck CT 05/09/18 18:23 CONCLUSION: 1. Large ill-defined low-attenuation mass extending along the right side of the neck. The differential diagnosis includes abscess and necrotic masses. 2. Several borderline prominent right cervical chain lymph nodes which likely are reactive. Discharge Plan Discharge Disposition Patient Disposition: Discharge Home Discharge Condition Condition: Stable Discharge Order Discharge Orders: Discharge Order (Routine); Ordered 05/12/18 Ordered By: Lola Duckworth Discharge Details Anticipated Discharge Date: 05/12/18 Physicians Team ED Provider: Caio Velasquez Primary Care Provider: UNKNOWN, Attending Provider: Lelo Montanez Other Providers: Addy Horan Rxs /Orders / Referrals /Forms Prescriptions: New hydrocodone-acetaminophen 5-325 mg Tablet 1 tab PO Q6H PRN (Reason: Pain Scale 4 To 6 Moderate) Qty: 12 RF: 0 amoxicillin-pot clavulanate [Augmentin] 875-125 mg tablet 1 tab PO BID Qty: 14 RF: 0 No Action No Known Home Medications RF: 0 Referrals: Family Practice Physician [Outside] - See Instructions (Please follow up within 1 week. ) Addy Horan MD [GENERAL SURGERY] - See Instructions (Please follow up in 1 week. ) UNKNOWN, [Primary Care Provider] - See Instructions Discharge Instructions Patient Printed Instructions: Abscess (ED), Incision and Drainage (DC) Additional Instructions: Your Health Problems: Goals to Promote Your Health: * To prevent worsening of your condition * To maintain your health at the optimal level Directions to Meet Your Goals: * Take your medications as prescribed * Follow your dietary instruction * Follow activity as directed * Keep your appointments as scheduled * Take your immunizations and boosters as scheduled * If your symptoms worsen call your PCP * If no PCP go to Urgent Care or Emergency Room Smoking is dangerous to your health. Avoid second hand smoke. You may reach the 24-hour crisis hotline for domestic abuse at . Status ED Status: Left Department Discharge Information Discharge Date/Time: 05/12/18 18:43
== END 2018-05-12 18:43 | disposition home or self-care (01) | DRG 581 ==
LOC: NEPD 17:30 → NEDA 21:41 → NEDH 05-10 02:15 → N07 05-10 10:10
PROVIDERS: ADMIT Internal Medicine; ATTEND Internal Medicine
DX: L02.11 Cutaneous abscess of neck; F43.10 Post-traumatic stress disorder, unspecified; Z87.891 Personal history of nicotine dependence
CPT/HCPCS: 70491; 80048; 80307; 85025; 87040; 87070; 87077; 87205; 90765; 90775; 96365; 96375; 99285; C9113; J0131; J1170; J2250; J2405; J3010; J7030; J7120; Q9967